=== PATIENT | male | born 1960 | race Caucasian/White ===

== ENCOUNTER → 2016-12-01 | Outpatient (CLI) | payer OTHER ==
--- NOTE | 2016-12-02 01:29 | REP ---
Clinical: Spondylosis. Technique: AP, lateral, flexion/extension, bilateral oblique, and open-mouth views. Findings: Alignment and lordosis is maintained. There is no evidence for acute fracture / compression injury or subluxation. Endplate sclerosis and minimal disc space narrowing noted at the C5-6, C6-7 levels. Oblique views demonstrate patent neural foramen. Open mouth view demonstrates normal C1-C2 articulation and odontoid process. Impression: Mild focal degenerative changes. Alignment and lordosis maintained. Signed by Donell Olivares MD 12/02/2016 01:21 A
--- NOTE | 2016-12-02 02:56 | REP ---
Clinical: Spondylosis . Technique: AP, lateral, bilateral oblique, and coned-down views. Findings: Alignment and lordosis is maintained. The vertebral bodies including transverse process and spinous processes are intact and normal. There is no evidence for acute fracture / compression injury or subluxation. No evidence for spondylolysis or spondylolisthesis. Mild, and likely age-related degenerative changes include subtle endplate sclerosis and minimal disc space narrowing as well as anterior spurring. Findings are most pronounced at the L5-S1 and L4-5 levels. Impression: Mild multilevel degenerative changes. Normal alignment and lordosis. Signed by Donell Olivares MD 12/02/2016 02:48 A
== END ==
LOC: M WUC 15:38
PROVIDERS: ATTEND Neurological Surgery
DX: M47.892 Other spondylosis, cervical region (principal); M47.896 Other spondylosis, lumbar region

== ENCOUNTER → 2017-01-02 | Outpatient (REF) | payer OTHER ==
[2017-01-02 15:35] LABS: FREE T4 1.04 NG/DL (0.76-1.46); TOTAL PROTEIN 7.4 GM/DL (6.4-8.2)
[2017-01-02 16:49] LABS: FOLATE 4.4 NG/ML; VITAMIN B12 LEVEL 833 PG/ML
[2017-01-05 13:08] LABS: ALBUMIN 4.15 GM/DL (3.29-5.55); ALBUMIN % 56.1 % (55.8-66.1); GAMMA GLOBULIN % 13.7 % (11.1-18.8)
== END ==
LOC: M LABNEURO 13:03
PROVIDERS: ATTEND Psychiatry & Neurology Neurology
DX: G62.9 Polyneuropathy, unspecified (principal); G89.29 Other chronic pain; M54.5 Low back pain; M54.2 Cervicalgia

== ENCOUNTER → 2017-03-21 | Outpatient (CLI) | payer OTHER ==
--- NOTE | 2017-03-21 16:53 | REP ---
PA and lateral chest: Comparison is 01/31/2014. The lung knox are clear. The cardiac size is normal The trevor, mediastinum, and bony thorax are unremarkable. Impression: Negative PA and lateral chest. There is no interval change. Signed by Abdi Burden MD 03/21/2017 04:45 P
== END ==
LOC: M WUC 15:43
PROVIDERS: ATTEND Nurse Practitioner Family
DX: R05 Cough (principal)

== ENCOUNTER → 2017-07-25 | Outpatient (CLI) | payer OTHER ==
[~2017-07-25] MED LIST: ISOVUE-370 76% 100ML VIAL (Q9967) As Ordered ONE
--- NOTE | 2017-07-25 08:21 | REP ---
Clinical: Adenopathy. Technique: Axial contrast enhanced images from the thoracic inlet to the upper abdomen using 100 ml Isovue 370 intravenous contrast material with coronal and sagittal re-formations. Findings: The mediastinum including thoracic aorta, pulmonary vasculature, heart and pericardium appear normal. There is no evidence for cardiomegaly, aortic dissection or aneurysm. No axillary, hilar, or mediastinal adenopathy is appreciated. The tracheobronchial tree is patent. The bilateral lung knox are well-aerated and clear. Minimal posterobasilar dependent changes are noted without consolidation, significant nodule or mass lesion. Surrounding musculoskeletal structures without focal osseous abnormality. Upper abdomen demonstrates normal bilateral adrenal glands. Impression: Normal contrast enhanced chest CT. No acute mediastinal or pleuroparenchymal process. Signed by Donell Olivares MD 07/25/2017 08:13 A
--- NOTE | 2017-07-25 09:02 | REP ---
CT NECK WITH CONTRAST: HISTORY: Enlarged lymph nodes. CONTRAST: Isovue 370, 100 mL. A BB was placed on the right side of the neck at the C4-5 level. Calcifications are present in the left tonsil. This is secondary to previous inflammatory disease. The naso-, royal-, and hypopharynx, larynx, and subglottic trachea are otherwise normal in appearance. The salivary and thyroid glands are normal in size and density. A large lymph node mass is present in the right supraclavicular area. This measures 5.4 cm in transverse by 3.5 cm in AP dimensions. Several enlarged lymph nodes are present adjacent to the large lymph node mass. These measure 1.2 to 2.6 cm in width. Small lymph nodes less than 1 cm in size are present in the internal jugular chains, posterior triangles and submandibular areas. Atherosclerotic calcification is present at the carotid bifurcations. Minimal degenerative change is present in the spine. The lung apices are clear. Mucosal thickening is present in the ethmoid, maxillary, right frontal and sphenoid sinuses. IMPRESSION: There is right supraclavicular lymphadenopathy as described above. Signed by Eddie Novoa MD 07/25/2017 09:12 A
== END ==
LOC: M RAD 07:39
PROVIDERS: ATTEND Surgery
DX: R59.0 Localized enlarged lymph nodes (principal)
CPT/HCPCS: 70491; 71260; Q9967

== ENCOUNTER → 2017-08-28 | Outpatient (CLI) | payer OTHER ==
--- NOTE | 2017-08-28 09:51 | REP ---
Ultrasonography of a palpable lump in the neck on the right: There are multiple enlarged lymph nodes corresponding to the palpable lump, the largest two measure 3.1 x 2.2 x 3.1 cm and 2.1 x 1.9 x 1.6 cm. In at least two of the nodes, there is no vascular flow with color Doppler ultrasound suggesting these may be necrotic nodes. Signed by Abdi Burden MD 08/28/2017 09:42 A
== END ==
LOC: M RAD 08:54
PROVIDERS: ATTEND Surgery
DX: R59.9 Enlarged lymph nodes, unspecified (principal)

== ENCOUNTER → 2018-07-11 | Outpatient (CLI) | payer OTHER | LOC: M RAD 17:33 | DX: R22.1 Localized swelling, mass and lump, neck (principal) | CPT/HCPCS: 70490 ==

== ENCOUNTER → 2018-07-19 | Outpatient (CLI) | payer OTHER ==
[~2018-07-19] MED LIST changes: -ISOVUE-370 76% 100ML VIAL (Q9967) As Ordered ONE; +LIDOCAINE 1% MDV 20ML VIAL As Ordered
== END ==
LOC: M RADPRO 13:46
DX: C85.11 Unspecified B-cell lymphoma, lymph nodes of head, face, and neck (principal); R22.1 Localized swelling, mass and lump, neck
CPT/HCPCS: 38505

== ENCOUNTER → 2018-07-31 | Outpatient (CLI) | payer OTHER | LOC: M PLARAD 07:31 | DX: C85.91 Non-Hodgkin lymphoma, unspecified, lymph nodes of head, face, and neck (principal) | CPT/HCPCS: 78815 ==

== ENCOUNTER → 2018-08-01 | Outpatient (CLI) | payer OTHER | LOC: M RAD 13:58 | DX: C85.91 Non-Hodgkin lymphoma, unspecified, lymph nodes of head, face, and neck (principal) | CPT/HCPCS: 88300 ==

== ENCOUNTER → 2018-08-02 | Outpatient (CLI) | payer OTHER | LOC: M CARPUL 10:55 | DX: C85.91 Non-Hodgkin lymphoma, unspecified, lymph nodes of head, face, and neck (principal) | CPT/HCPCS: 93306 ==

== ENCOUNTER → 2018-08-02 | Outpatient (CLI) | payer OTHER | LOC: M CARPUL 06:43 | DX: C85.90 Non-Hodgkin lymphoma, unspecified, unspecified site (principal) | CPT/HCPCS: 94010 ==

== ENCOUNTER 2018-08-03 07:32 | Day surgery (SDC) | payer OTHER ==
[~2018-08-03 07:32] MED LIST changes: -LIDOCAINE 1% MDV 20ML VIAL As Ordered; +LIDOCAINE 2% INJ 100 MG/5 ML SDV (FOR ANES.) As Ordered; +MIDAZOLAM INJ 2 MG/2 ML VIAL (J2250) As Ordered; +PROPOFOL 200 MG/20 ML VIAL As Ordered; +fentaNYL 100 MCG/2 ML INJECTION (J3010) As Ordered
[2018-08-03] MEDS ORDERED: MUPIROCIN 2% OINT 22 GM TUBE TOP (08:00)
[2018-08-03] MEDS ORDERED: PROPOFOL 200 MG/20 ML VIAL As Ordered ×5 (08:26→10:28)
[2018-08-03] MEDS: LR 1,000 ML IV (08:35)
[2018-08-03] MEDS: HEPARIN SOD (PORCINE) 5000 UNITS/ML VIAL As Ordered (09:42)
[2018-08-03] MEDS: LIDOCAINE 1% SDV INJ 30 ML VIAL As Ordered (09:44)
[2018-08-03] MEDS: BUPIVACAINE LIPOSOME/PF 1.3% 20 ML VIAL (13.3MG/ML)(EXPAREL) As Ordered (09:59)
[2018-08-03] MEDS ORDERED: PERCOCET 5MG/325MG TAB PO (11:00)
== END 2018-08-03 11:10 | disposition home or self-care (01) ==
LOC: M SDC 07:32
DX: C81.90 Hodgkin lymphoma, unspecified, unspecified site (principal); Z45.2 Encounter for adjustment and management of vascular access device; I10 Essential (primary) hypertension; E78.5 Hyperlipidemia, unspecified; Z87.891 Personal history of nicotine dependence; Z79.899 Other long term (current) drug therapy; M54.81 Occipital neuralgia; G60.3 Idiopathic progressive neuropathy; R05 Cough
CPT/HCPCS: 36561

== ENCOUNTER → 2018-08-13 | Outpatient (CLI) | payer OTHER | LOC: M SMT 10:29 | DX: C81.91 Hodgkin lymphoma, unspecified, lymph nodes of head, face, and neck (principal) ==

== ENCOUNTER → 2018-10-02 | Outpatient (CLI) | payer OTHER | LOC: M PLARAD 12:43 | DX: C85.91 Non-Hodgkin lymphoma, unspecified, lymph nodes of head, face, and neck (principal) | CPT/HCPCS: 78815 ==

== ENCOUNTER → 2018-10-18 | Outpatient (CLI) | payer OTHER ==
[~2018-10-18] MED LIST changes: +ACET-683 PO; +AMLO10TA4 PO; +AUGM500T34 PO; +AUGM875T28 PO; +CALC500T36 PO; +FLUTISP; +GLUC1CAP10 PO; +HYDR25TAB PO; +K-TA10TA2 PO; +LEVA1TAB2 PO; -LIDOCAINE 2% INJ 100 MG/5 ML SDV (FOR ANES.) As Ordered; +MELO15TA28 PO; -MIDAZOLAM INJ 2 MG/2 ML VIAL (J2250) As Ordered; +MUCI600T31 PO; +OMEP40CA2 PO; +PROC10TA4 PO; -PROPOFOL 200 MG/20 ML VIAL As Ordered; +SIMV20TA2 PO; +VITA100072 PO; +VITA500T PO; +ZOFR8TAB24 PO; +[UNRECOGNIZED DRUG - CODE] PO; -fentaNYL 100 MCG/2 ML INJECTION (J3010) As Ordered
--- NOTE | 2018-10-19 02:10 | REP ---
Clinical: Cough and wheeze with history of lymphoma. Technique: PA and lateral. Comparison: 08/13/2018. Findings: [id number] with tip in the SVC. Mediastinum and Cardiac silhouette stable. The lung knox demonstrate chronic perihilar and basilar changes without obvious acute consolidation. No effusion or pneumothorax. Skeletal structures are intact. Impression: Chronic-appearing changes. Electronically Signed by Donell Olivares MD 10/19/2018 02:01 A
== END ==
LOC: M RAD 08:15
PROVIDERS: ATTEND Internal Medicine Medical Oncology
DX: R06.2 Wheezing (principal)

== ENCOUNTER → 2018-11-13 | Outpatient (CLI) | payer OTHER ==
[~2018-11-13] MED LIST changes: -AMLO10TA4 PO; +AMLO10TA5 PO
--- NOTE | 2018-11-16 10:48 | RADONC ---
RADIATION ONCOLOGY CONSULTATION NOTE DATE: 11/13/2018 CHART NUMBER: [id number] DIAGNOSIS: Hodgkin's disease, nodular sclerosing type. STAGE: II B. ECOG PERFORMANCE STATUS: 0 CONSULTATION NOTE: Mr. 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 HISTORY OF PRESENT ILLNESS: The patient was in his usual state of health and was seen by Dr. Barrera for enlarged right neck lymphadenopathy. A CT scan was done on 07/11/2018 that showed progressive right cervical lymphadenopathy, supraclavicular adenopathy up to the hyoid level. A PET scan was undertaken on 07/31/2018 and showed hypermetabolic activity in the neck and right axilla. There was extensive involvement in the supraclavicular lymph nodes as well as the right lymph nodes deep to the right clavicle. There was hypermetabolic activity in the right axilla as well. On 06/2018, the patient underwent biopsy of a lymph node, which showed nodular sclerosing type classical Hodgkin's lymphoma. The patient received chemotherapy consisting of ABVD, and a repeat CT scan done on 10/02/2018 showed substantial regression of his right supraclavicular lymphadenopathy. It was no longer hypermetabolic. The maximum SUV value in the residual soft tissue yeny areas was only 1.7. The remaining soft tissue lymph node was 1.9 cm in short axis dimension. It had previously been 3.3 cm. No new adenopathy was seen. The patient is scheduled for his fourth cycle of chemotherapy on November 19, next week and a subsequent PET scan as scheduled on December 11. Dr. Avila noted that should the PET scan show complete remission then radiation therapy may not be needed. If the CT scan showed a partial response, radiation therapy may be considered. If there is any progression of disease, the patient would need to undergo salvage systemic therapy. PAST MEDICAL HISTORY: The patient's past medical history is positive for arthritis, hypertension and asthma. He had knee surgery as well as testicular surgery. ALLERGIES: The patient is allergic to CT DYE. SOCIAL HISTORY: The patient had smoked one pack of cigarettes every 5 days or so for 20 years. He quit in 2006 or 2007. He drinks two alcoholic beverages a day. FAMILY HISTORY: The patient's family history is positive for a father with a schwannoma. REVIEW OF SYSTEMS: The patient's review of systems is positive for some occasional dizziness, weight loss since chemotherapy and headaches. He does have some bowel issues since chemotherapy. He denies nausea, vomiting, fevers, chills, night sweats, diplopia, chest pain, rectal bleeding, urinary problems, bone pain or neurological problems. His night sweats have resolved. PHYSICAL EXAMINATION: The patient is a well-developed, well-nourished male in no acute distress. HEENT exam is normocephalic, atraumatic. Extraocular movements are intact. There is no palpable cervical, supraclavicular, infraclavicular, axillary, or inguinal lymphadenopathy present. Lungs are clear to auscultation and percussion. Heart has a regular rate and rhythm. Abdomen is benign with no hepatosplenomegaly, masses, or tenderness. Skeletal examination reveals no tenderness to pressure or percussion of the bony skeleton. Extremities reveal no clubbing, cyanosis, or edema. Neurologic exam is grossly intact, as is the remainder of the physical examination. ASSESSMENT: In light of the fact that this patient has another round of chemotherapy to go next week and is scheduled for a PET scan on December 11, I am scheduling him to come back for re-consultation following his PET scan. Depending on his response further recommendations will be made. I did spend time discussing with this patient the potential benefits as well as possible acute and chronic sequelae of external beam radiation therapy. We discussed logistics of treatment planning, simulation and subsequent fractionated daily radiation treatments. As noted above, the patient is continuing with his systemic therapy at this time and reevaluation with PET CT will be undertaken prior to his next visit here. Thank you for allowing us to participate in the care of this very pleasant gentleman. If I could be of any further assistance or provide you with any information, please free to contact me at anytime. As always, warm regards. cc: Radha Avila MD, FACP CAMELIA Larkin
== END ==
LOC: M ONCR 08:53
PROVIDERS: ATTEND Radiology Radiation Oncology
DX: C81.90 Hodgkin lymphoma, unspecified, unspecified site (principal)

== ENCOUNTER → 2018-11-26 | Outpatient (CLI) | payer OTHER ==
--- NOTE | 2018-11-26 07:27 | PFTRPT ---
Height: 73.00 Inches Weight: 300.00 Lbs BSA: 2.56 Diagnosis: Lymphoma DATE OF PROCEDURE: 11/26/2018 ORDERING PHYSICIAN: Dr. Radha Avila SPIROMETRY: Study of excellent technical quality. Forced vital capacity reduced. FEV1 is in proportion. Obstructive index is, therefore, normal. Flow Volume Loop: Expiratory limb of the flow volume loop does suggest at some degree of nonspecific flow rate limitation. Lung Volumes: Total lung capacity is normal. Residual volume raises the question of borderline air trapping. Diffusing Capacity: Diffusing capacity is normal. Airway Mechanics: Airway resistance and conductance normal. Hemoglobin: No hemoglobin available for correction. IMPRESSION: Cannot rule out a degree of air trapping. Please correlate clinically. MTDD
--- NOTE | 2018-11-27 09:53 | MEDONCTEEN ---
Date/Time of Encounter Date of Encounter: Nov 27, 2018 Time of Encounter: 09:50 Telephone Encounter PFTs showed normal DLCO but note of possible air trapping. Results discussed with patient. I recommended pulmonary consult. LARRY ROMANO MD Nov 27, 2018 09:53
== END ==
LOC: M CARPUL 06:45
PROVIDERS: ATTEND Internal Medicine Medical Oncology
DX: C81.90 Hodgkin lymphoma, unspecified, unspecified site (principal)

== ENCOUNTER → 2018-12-11 | Outpatient (CLI) | payer OTHER ==
--- NOTE | 2018-12-11 20:08 | REP ---
Whole body radionuclide bone scan for restaging of non-Hodgkins lymphoma of the neck: Comparisons are 07/31/2018 and 10/02/2018. Whole-body scanning is performed from skull base to the upper thighs. Neck and supraclavicular areas: There are no hypermetabolic foci. The large focus of confluent hypermetabolic foci in the neck, supraclavicular and infraclavicular areas on the right identified on 07/31/2018 has resolved. The hypermetabolic foci identified in the right axilla on 07/31/2018 have resolved. There are no hypermetabolic foci in these areas. On 10/02/2018 and there are no hypermetabolic foci today. There are no other hypermetabolic foci in the neck or supraclavicular areas today. Chest: There are no hypermetabolic foci. This is unchanged. Abdomen, pelvis and upper thighs: There are no hypermetabolic foci. This is unchanged. Impression: There are no hypermetabolic foci. This is unchanged from 10/02/2018. The study is performed with 9.52 mCi of F 18 FDG. Electronically Signed by Abdi Burden MD 12/11/2018 07:59 P
== END ==
LOC: M PLARAD 08:23
PROVIDERS: ATTEND Internal Medicine Medical Oncology
DX: C85.91 Non-Hodgkin lymphoma, unspecified, lymph nodes of head, face, and neck (principal)
CPT/HCPCS: 78815; A9552

== ENCOUNTER → 2018-12-18 | Outpatient (CLI) | payer OTHER | LOC: M ONCR 07:55 | PROVIDERS: ATTEND Radiology Radiation Oncology | DX: C81.90 Hodgkin lymphoma, unspecified, unspecified site (principal) ==

== ENCOUNTER → 2019-03-04 | Outpatient (CLI) | payer OTHER ==
[~2019-03-04] MED LIST changes: +AMOX875T2 PO; +BREO1INH3 INH; +CALC12504 PO; -CALC500T36 PO; +VITA100018 PO; -VITA100072 PO; +VITA500075 PO; -[UNRECOGNIZED DRUG - CODE] PO
--- NOTE | 2019-03-04 19:31 | ECHO ---
DATE OF PROCEDURE: 03/04/2019 Date of : 1960 Age: 59 Gender: Male Height: 73 inches Weight: 319 pounds Body surface area: 2.62 meters squared Outpatient. REFERRING PHYSICIAN: Dr. Ethan Gramajo INDICATION: Potentially cardiotoxic chemotherapy. MEASUREMENTS: 2D Measurements: RV: 4.4 cm LV: 4.8 cm Septum: 1.3 cm Posterior wall: 1.3 cm Aortic root: 3.8 cm LA: 4.3 cm LVEF: 65% Doppler Measurements: AV: 1.5 meters per second LVOT: 1.5 meters per second LVOT diameter: 2.2 cm MV-E: 106, A: 97, EA ratio: 1.1 Early mitral deceleration time: 228 milliseconds E prime: 7.8, A prime: 10.7, E/E prime ratio: 13 Pulmonary capillary wedge pressure: 17.6 mmHg PV: 0.85 meters per second Pulmonary artery acceleration time: 99 milliseconds PASP: 37 mmHg IVC: 2.0 cm COMMENTS: Normal sinus rhythm without intraventricular conduction disturbance. Technically challenging study in light of the patient's body habitus but diagnostically useful information was still obtained. M-mode and two-dimensional echocardiography was performed with pulse, continuous wave, and color-flow and tissue Doppler studies. Mild concentric left ventricular hypertrophy with normal wall motion. Mildly dilated left atrium with impairment of left ventricular (LV) diastolic function and mildly elevated estimated mean left atrial pressure. A mildly dilated right heart chambers with normal wall motion and mild pulmonary hypertension. Normal inferior vena cava (IVC) size and collapse against an elevated central venous pressure. Slight aortic valvular sclerosis without functional abnormality. Marginally dilated aortic root. No apparent intracardiac mass or pericardial effusion. MTDD
== END ==
LOC: M CARPUL 08:13
PROVIDERS: ATTEND Internal Medicine Hematology & Oncology
DX: C81.90 Hodgkin lymphoma, unspecified, unspecified site (principal); I51.7 Cardiomegaly

== ENCOUNTER 2019-03-07 10:49 | Day surgery (SDC) | payer OTHER ==
[~2019-03-07] VITALS: Ht 185.4 cm; Wt 139.7 kg
[~2019-03-07 10:49] MED LIST changes: +NS 1,000 ML IV ONE
[2019-03-07] MEDS ORDERED: fentaNYL 100 MCG/2 ML INJECTION (J3010) As Ordered ONE (12:56)
[2019-03-07] MEDS ORDERED: PROPOFOL 200 MG/20 ML VIAL As Ordered ONE (12:56)
[2019-03-07] MEDS ORDERED: LIDOCAINE 2% INJ 100 MG/5 ML SDV (FOR ANES.) As Ordered ONE (12:56)
--- NOTE | 2019-03-07 12:59 | ROOR ---
Patient Name: Abdi Garces Procedure Date: 03/07/2019 12:23 PM Date of : 1960 Age: 59 Room: [facility] Gender: Male Note Status: Finalized Procedure: Upper GI endoscopy Indications: Suspected esophageal reflux Providers: Abhinav Barrera Jr, MD Referring MD: Seven Stearns NP Requesting Provider: Medicines: Propofol per Anesthesia Complications: No immediate complications. Procedure: Pre-Anesthesia Assessment: - Prior to the procedure, a History and Physical was performed, and patient medications and allergies were reviewed. The patient is competent. The risks and benefits of the procedure and the sedation options and risks were discussed with the patient. All questions were answered and informed consent was obtained. Patient identification and proposed procedure were verified by the physician and the nurse in the pre-procedure area and in the procedure room. Mental Status Examination: alert and oriented. Airway Examination: normal oropharyngeal airway and neck mobility. Respiratory Examination: clear to auscultation. CV Examination: normal. ASA Grade Assessment: II - A patient with mild systemic disease. After reviewing the risks and benefits, the patient was deemed in satisfactory condition to undergo the procedure. The anesthesia plan was to use moderate sedation / analgesia (conscious sedation). Immediately prior to administration of medications, the patient was re-assessed for adequacy to receive sedatives. The heart rate, respiratory rate, oxygen saturations, blood pressure, adequacy of pulmonary ventilation, and response to care were monitored throughout the procedure. The physical status of the patient was re-assessed after the procedure. The Endoscope was introduced through the mouth, and advanced to the second part of duodenum. The upper GI endoscopy was accomplished without difficulty. The patient tolerated the procedure well. Findings: The upper third of the esophagus, middle third of the esophagus and lower third of the esophagus were normal. Diffuse moderately congested mucosa was found in the gastric fundus, in the gastric body and in the gastric antrum. Biopsies were taken with a cold forceps for histology. The cardia and prepyloric region of the stomach were normal. The first portion of the duodenum and second portion of the duodenum were normal. Patchy moderately erythematous mucosa and with no stigmata of bleeding was found in the duodenal bulb. Impression: - Normal upper third of esophagus, middle third of esophagus and lower third of esophagus. - Congestive gastropathy. Biopsied. - Normal cardia and prepyloric region of the stomach. - Normal first portion of the duodenum and second portion of the duodenum. - Erythematous duodenopathy. Recommendation: - Discharge patient to home (ambulatory). - Return to my office in 2 weeks. Abhinav Barrera MD Abhinav Barrera Jr, MD 03/07/2019 12:59:39 PM Electronically signed by Abhinav Barrera Jr, MD Number of Addenda: 0 Note Initiated On: 03/07/2019 12:23 PM Estimated Blood Loss: Estimated blood loss: none.
--- NOTE | 2019-03-07 13:04 | ROOR ---
Patient Name: Abdi Garces Procedure Date: 03/07/2019 12:24 PM Date of : 1960 Age: 59 Room: [facility] Gender: Male Note Status: Finalized Procedure: Colonoscopy Indications: Screening for colorectal malignant neoplasm Providers: Abhinav Barrera Jr, MD Referring MD: Sevne Stearns NP Requesting Provider: Medicines: Propofol per Anesthesia Complications: No immediate complications. Procedure: Pre-Anesthesia Assessment: - Prior to the procedure, a History and Physical was performed, and patient medications and allergies were reviewed. The patient is competent. The risks and benefits of the procedure and the sedation options and risks were discussed with the patient. All questions were answered and informed consent was obtained. Patient identification and proposed procedure were verified by the physician and the nurse in the pre-procedure area and in the procedure room. Mental Status Examination: alert and oriented. Airway Examination: normal oropharyngeal airway and neck mobility. Respiratory Examination: clear to auscultation. CV Examination: normal. ASA Grade Assessment: II - A patient with mild systemic disease. After reviewing the risks and benefits, the patient was deemed in satisfactory condition to undergo the procedure. The anesthesia plan was to use moderate sedation / analgesia (conscious sedation). Immediately prior to administration of medications, the patient was re-assessed for adequacy to receive sedatives. The heart rate, respiratory rate, oxygen saturations, blood pressure, adequacy of pulmonary ventilation, and response to care were monitored throughout the procedure. The physical status of the patient was re-assessed after the procedure. The Colonoscope was introduced through the anus and advanced to the cecum, identified by appendiceal orifice and ileocecal valve. The colonoscopy was performed without difficulty. The patient tolerated the procedure well. The quality of the bowel preparation was adequate. Findings: A small polyp was found in the ascending colon. The polyp was removed with a cold snare. Resection and retrieval were complete. An area of moderately congested mucosa was found at the hepatic flexure. This was biopsied with a cold jumbo forceps for histology. Area was successfully injected with 2 mL Spot (carbon black) for tattooing. The rectum, recto-sigmoid colon, sigmoid colon, descending colon, transverse colon, cecum, appendiceal orifice and ileocecal valve appeared normal. Impression: - One small polyp in the ascending colon, removed with a cold snare. Resected and retrieved. - Congested mucosa at the hepatic flexure. Biopsied. Injected. - The rectum, recto-sigmoid colon, sigmoid colon, descending colon, transverse colon, cecum, appendiceal orifice and ileocecal valve are normal. Recommendation: - Discharge patient to home (ambulatory). - Return to my office in 2 weeks. Abhinav Barrera MD Abhinav Barrera Jr, MD 03/07/2019 1:03:48 PM Electronically signed by Abhinav Barrera Jr, MD Number of Addenda: 0 Note Initiated On: 03/07/2019 12:24 PM Estimated Blood Loss: Estimated blood loss: none.
[2019-03-07 13:27] VITALS: BP 161/103
== END 2019-03-07 13:27 | disposition home or self-care (01) ==
LOC: M OPP 10:49
PROVIDERS: ATTEND Surgery
DX: D12.2 Benign neoplasm of ascending colon (principal); K63.89 Other specified diseases of intestine; K31.89 Other diseases of stomach and duodenum; Z12.11 Encounter for screening for malignant neoplasm of colon
CPT/HCPCS: 43239; 45380; 45381; 45385; 88305; J3010

== ENCOUNTER → 2019-05-07 | Outpatient (CLI) | payer OTHER ==
[~2019-05-07] MED LIST changes: -CALC12504 PO; +CALC500T61 PO; -NS 1,000 ML IV ONE; +SUCR1TAB56 PO
--- NOTE | 2019-05-07 12:07 | REP ---
PET/CT: History: Restaging non-Hodgkin's lymphoma. Comparisons: December 11, 2018. TECHNIQUE: 47 minutes following the intravenous injection of a 9.45 mCi dose of F-18 FDG, three-dimensional PET scintigraphy is acquired from the skull base to the proximal thighs. Triplanar noncontrast CT scanning is acquired through the same anatomic range for attenuation correction, and image registration with scan parameters optimized to minimize radiation exposure to the patient. PET scintigraphy and CT datasets were fused and displayed on a workstation with multiplanar and projection display capability. PET/CT Findings: There is a large area of hypermetabolic uptake in the soft tissues at the injection site in the right upper arm consistent with partial extravasation. There is some vascular uptake associated with this and uptake is seen in a normal sized fat replaced benign-appearing axillary lymph node on the right also as injection artifact. Head and neck soft tissues are unremarkable. There is no evidence of hypermetabolic adenopathy or mass. There is a left-sided [id number]. There is no abnormal hypermetabolic uptake in the thorax. No adenopathy is seen. The lung parenchyma is unremarkable and clear. In the abdomen and pelvis, there is normal hepatic, splenic, gastrointestinal, and genitourinary FDG accumulation. No abnormal hypermetabolic uptake is appreciated. Impression: Negative PET scintigraphy. Injection artifact right upper extremity and right axilla. Electronically Signed by Graham Salas MD 05/07/2019 04:54 P
== END ==
LOC: M PLARAD 07:28
PROVIDERS: ATTEND Internal Medicine Hematology & Oncology
DX: C81.91 Hodgkin lymphoma, unspecified, lymph nodes of head, face, and neck (principal)
CPT/HCPCS: 78815; A9552

== ENCOUNTER → 2019-11-28 | Outpatient (CLI) | payer OTHER ==
[~2019-11-28] MED LIST changes: -OMEP40CA2 PO; +OMEP40CA97 PO; -SIMV20TA2 PO; +SIMV20TA22 PO
== END ==
LOC: M EKG 08:55
PROVIDERS: ATTEND Family Medicine
DX: I10 Essential (primary) hypertension (principal)

== ENCOUNTER → 2021-09-02 | Outpatient (REF) | payer OTHER ==
[~2021-09-02] MED LIST changes: -AMLO10TA5 PO; +AMLO1TAB25 PO; +HYDR-3490 PO; -HYDR25TAB PO; +OMEP40CA4 PO; -OMEP40CA97 PO; +VITA-243 PO; -VITA500T PO
== END ==
LOC: M SFHCPLAZ 10:18
PROVIDERS: ATTEND Family Medicine
DX: D17.22 Benign lipomatous neoplasm of skin and subcutaneous tissue of left arm (principal)

== ENCOUNTER → 2021-09-14 | Outpatient (REF) | payer OTHER ==
[~2021-09-14] MED LIST changes: -PROC10TA4 PO; +PROC10TA5 PO
== END ==
LOC: M SFHCPLAZ 16:11
PROVIDERS: ATTEND Family Medicine
DX: B35.1 Tinea unguium (principal); Z53.9 Procedure and treatment not carried out, unspecified reason

== ENCOUNTER → 2021-12-10 | Outpatient (REF) | payer OTHER | LOC: M SFHCPLAZ 12:39 | PROVIDERS: ATTEND Family Medicine | DX: R73.01 Impaired fasting glucose (principal); E83.52 Hypercalcemia; Z12.5 Encounter for screening for malignant neoplasm of prostate; R68.82 Decreased libido; Z53.8 Procedure and treatment not carried out for other reasons ==

== ENCOUNTER → 2022-01-06 | Outpatient (CLI) | payer OTHER | LOC: M PLAIMG 07:57 | PROVIDERS: ATTEND Orthopaedic Surgery | DX: M17.11 Unilateral primary osteoarthritis, right knee (principal) ==

== ENCOUNTER 2022-01-24 00:22 | Emergency (ER) | payer OTHER ==
[~2022-01-24] VITALS: Ht 185.4 cm; Wt 140.9 kg
[2022-01-24] MEDS ORDERED: ACET-683 PO (00:36)
[2022-01-24 01:50] LABS: BASO # 0.1 10^3/uL (0.0-0.2); BASO % 0.4 % (0.0-1.0); EOS # 0.2 10^3/uL (0.0-0.5); EOS % 1.7 % (0.0-3.0); HEMATOCRIT 45.8 % (42.0-52.0); HEMOGLOBIN 16.2 g/dl (13.5-17.5); LYMPH # 0.9 10^3/uL (1.5-5.0); LYMPH % 8.2 % (24.0-44.0); MEAN CORPUSCULAR HEMOGLOBIN 30.7 pg (27.0-33.0); MEAN CORPUSCULAR HGB CONC 35.4 g/dl (32.0-36.5); MEAN CORPUSCULAR VOLUME 86.7 fl (80.0-96.0); MONO # 1.2 10^3/uL (0.0-0.8); NEUTROPHILS # 9.1 10^3/uL (1.5-8.5); NEUTROPHILS % 79.3 % (36.0-66.0); PLATELET COUNT, AUTOMATED 211 10^3/uL (150-450); RED BLOOD COUNT 5.28 10^6/uL (4.30-6.10); WHITE BLOOD COUNT 11.5 10^3/uL (4.0-10.0)
[2022-01-24] MEDS ORDERED: KETOROLAC 30 MG/ML 1ML VIAL IV ONE (02:00)
[2022-01-24 02:13] LABS: ALBUMIN 3.6 GM/DL (3.2-5.2); ALT/SGPT 37 U/L (12-78); BILIRUBIN,DIRECT < 0.1 MG/DL (0.0-0.2); BILIRUBIN,TOTAL 0.3 MG/DL (0.2-1.0); LIPASE 197 U/L (73-393); TOTAL PROTEIN 6.7 GM/DL (6.4-8.2)
[2022-01-24] MEDS ORDERED: MORPHINE 4 MG/ML 1ML VIAL/SYRINGE IV ONE (03:25)
[2022-01-24] MEDS ORDERED: LEVO750T13 PO (04:15)
[2022-01-24] MEDS ORDERED: PERC5TAB12 PO (04:15)
[2022-01-24] MEDS ORDERED: PERCOCET 5MG/325MG TAB PO ONE (04:20)
[2022-01-24] MEDS ORDERED: LevoFLOXacin 750 MG TABLET PO ONE (04:20)
[2022-01-24 04:25] VITALS: BP 136/77
== END 2022-01-24 04:27 | disposition home or self-care (01) ==
LOC: M ED 00:22
DX: N39.0 Urinary tract infection, site not specified (principal); N12 Tubulo-interstitial nephritis, not specified as acute or chronic; I10 Essential (primary) hypertension; J45.909 Unspecified asthma, uncomplicated; E78.5 Hyperlipidemia, unspecified; K21.9 Gastro-esophageal reflux disease without esophagitis; Z79.899 Other long term (current) drug therapy
CPT/HCPCS: 74176; 80047; 80076; 81001; 83690; 85025; 96374; 96375; 99284; J1885; J2270

== ENCOUNTER → 2022-05-17 | Outpatient (CLI) | payer OTHER ==
[~2022-05-17] MED LIST changes: +LEVO750T13 PO; +PERC5TAB12 PO
[2022-05-17 14:01] LABS: HEMATOCRIT 48.1 % (42.0-52.0); HEMOGLOBIN 16.5 g/dl (13.5-17.5); MEAN CORPUSCULAR HEMOGLOBIN 30.5 pg (27.0-33.0); MEAN CORPUSCULAR HGB CONC 34.3 g/dl (32.0-36.5); MEAN CORPUSCULAR VOLUME 88.9 fl (80.0-96.0); PLATELET COUNT, AUTOMATED 204 10^3/uL (150-450); RED BLOOD COUNT 5.41 10^6/uL (4.30-6.10); WHITE BLOOD COUNT 6.5 10^3/uL (4.0-10.0)
[2022-05-17 14:13] LABS: ALBUMIN 3.9 GM/DL (3.2-5.2); ALT/SGPT 49 U/L (12-78); BILIRUBIN,TOTAL 0.6 MG/DL (0.2-1.0); BLOOD UREA NITROGEN 19 MG/DL (7-18); CALCIUM LEVEL 10.1 MG/DL (8.8-10.2); CARBON DIOXIDE LEVEL 31 MEQ/L (21-32); CHLORIDE LEVEL 103 MEQ/L (98-107); CREATININE FOR GFR 0.77 MG/DL (0.70-1.30); GLOMERULAR FILTRATION RATE > 60.0 (>49); GLUCOSE, FASTING 121 MG/DL (70-100); POTASSIUM SERUM 3.9 MEQ/L (3.5-5.1); SODIUM LEVEL 141 MEQ/L (136-145); TOTAL PROTEIN 6.9 GM/DL (6.4-8.2)
[2022-05-17 14:41] LABS: INR 0.92; PROTHROMBIN TIME 12.7 SECONDS (12.7-14.5)
[2022-05-17 15:19] LABS: ERYTHROCYTE SEDIMENTATION RATE 9 mm/hr (0-20)
== END ==
LOC: M PLAIMG 09:56 → M PLALAB 09:56
PROVIDERS: ATTEND Orthopaedic Surgery
DX: M17.11 Unilateral primary osteoarthritis, right knee (principal)

== ENCOUNTER → 2023-10-09 | Outpatient (CLI) | payer OTHER ==
[~2023-10-09] MED LIST changes: -K-TA10TA2 PO; +LEVO1TAB40 PO; -LEVO750T13 PO; +POTA-165 PO
[2023-10-09 17:44] LABS: BLOOD UREA NITROGEN 23 MG/DL (9-23); CALCIUM LEVEL 9.8 MG/DL (8.3-10.6); CARBON DIOXIDE LEVEL 32 MMOL/L (20-31); CHLORIDE LEVEL 100 MMOL/L (98-107); CHOLESTEROL LEVEL 162 MG/DL (<200); CHOLESTEROL RISK RATIO 3.49 (<5); CREATININE FOR GFR 0.73 MG/DL (0.70-1.30); GLOMERULAR FILTRATION RATE > 60.0 (>49); GLUCOSE, FASTING 110 MG/DL (74-106); HDL CHOLESTEROL 46.4 MG/DL (>40); LDL CHOLESTEROL 96.6 MG/DL (<100); NON-HDL-C 115.6 MG/DL; POTASSIUM SERUM 3.4 MMOL/L (3.5-5.1); SODIUM LEVEL 141 MMOL/L (136-145); TRIGLYCERIDES LEVEL 95 MG/DL (<150)
[2023-10-09 17:56] LABS: HEMOGLOBIN A1c 5.6 % (4.0-6.0)
== END ==
LOC: M LAB 16:07
PROVIDERS: ATTEND Student in an Organized Health Care Education/Training Program
DX: Z00.00 Encounter for general adult medical examination without abnormal findings (principal)

== ENCOUNTER → 2024-05-30 | Outpatient (REF) | payer OTHER | LOC: M SFHCPLAZ 08:37 | PROVIDERS: ATTEND Family Medicine | DX: I10 Essential (primary) hypertension (principal) ==